=== PATIENT | male | born 1940 | race Caucasian/White ===

== ENCOUNTER 2025-05-30 16:32 | Observation (INO) ==
[2025-05-30] MEDS ORDERED: IOPAMIDOL 100 ML BOTTLE IV ONE (16:33)
[2025-05-30 17:11] LABS: Basophils # (Auto) 0.08 K/mcL (0.00-0.30); Basophils % (Auto) 0.7 % (0.0-2.0); Eosinophils # (Auto) 0.43 K/mcL (0.00-0.70); Eosinophils % (Auto) 3.7 % (0.0-7.0); Hematocrit 35.2 % (40.1-51.0); Hemoglobin 11.0 g/dL (13.7-17.5); Lymphocytes # (Auto) 1.13 K/mcL (1.50-4.80); Lymphocytes % (Auto) 9.7 % (15.5-49.0); Mean Corpuscular HGB Conc 31.3 g/dL (31.0-36.0); Monocytes # (Auto) 0.67 K/mcL (0.10-0.90); Monocytes % (Auto) 5.7 % (1.0-12.0); Neutrophils % (Auto) 79.9 % (38.0-78.0); Platelet Count 216 K/mcL (140-440); RBC 3.51 M/mcL (4.63-6.08); WBC 11.7 K/mcL (4.5-11.0)
[2025-05-30 17:29] LABS: INR 1.0 (0.9-1.1); Partial Thromboplastin Time 25.5 sec (20.0-37.0); Prothrombin Time 13.9 sec (11.9-14.5)
[2025-05-30] MEDS: ASPIRIN 81 MG TAB.CHEW CHEWED ONE ×2 (17:29→20:58)
[2025-05-30 17:37] LABS: ALT/SGPT 15 U/L (<40); AST/SGOT 12 U/L (<40); Albumin 3.3 gm/dL (3.2-5.2); Albumin/Globulin Ratio 1.3 (1.0-2.3); Alkaline Phosphatase 57 U/L (39-117); Anion Gap 11.0 (8.0-16.0); Bilirubin,Total < 0.2 mg/dL (0.1-1.0); Blood Urea Nitrogen 36 mg/dL (8-23); Calcium 8.8 mg/dL (8.6-10.4); Carbon Dioxide 25 mmol/L (22-30); Chloride 100 mmol/L (96-108); Globulin 2.5 gm/dL (2.2-3.7); Glucose 165 mg/dL (70-105); Potassium 4.6 mmol/L (3.3-5.1); Sodium 136 mmol/L (133-145)
[2025-05-30] MEDS: ATORVASTATIN 40 MG TABLET PO ONE (17:38)
[2025-05-30] MEDS: CLOPIDOGREL 300 MG TABLET PO ONE (20:59)
[2025-05-30] MEDS ORDERED: ONDANSETRON 4 MG/2 ML VIAL IV PRN (22:08)
[2025-05-30] MEDS ORDERED: ACETAMINOPHEN 325 MG TABLET PO PRN (22:08)
[2025-05-31] MEDS: 0.9 % SODIUM CHLORIDE 10 ML SYRINGE IV SCH (00:22)
[2025-05-31 06:12] LABS: Basophils # (Auto) 0.08 K/mcL (0.00-0.30); Basophils % (Auto) 0.6 % (0.0-2.0); Eosinophils # (Auto) 0.41 K/mcL (0.00-0.70); Eosinophils % (Auto) 3.2 % (0.0-7.0); Hematocrit 35.0 % (40.1-51.0); Hemoglobin 11.0 g/dL (13.7-17.5); Lymphocytes # (Auto) 0.79 K/mcL (1.50-4.80); Lymphocytes % (Auto) 6.2 % (15.5-49.0); Mean Corpuscular HGB Conc 31.4 g/dL (31.0-36.0); Monocytes # (Auto) 0.78 K/mcL (0.10-0.90); Monocytes % (Auto) 6.1 % (1.0-12.0); Neutrophils % (Auto) 83.6 % (38.0-78.0); Platelet Count 213 K/mcL (140-440); RBC 3.49 M/mcL (4.63-6.08); WBC 12.7 K/mcL (4.5-11.0)
[2025-05-31 06:31] LABS: ALT/SGPT 16 U/L (<40); AST/SGOT 13 U/L (<40); Albumin 3.7 gm/dL (3.2-5.2); Albumin/Globulin Ratio 1.3 (1.0-2.3); Alkaline Phosphatase 64 U/L (39-117); Anion Gap 13.0 (8.0-16.0); Bilirubin,Direct < 0.2 mg/dL (0-0.3); Bilirubin,Total 0.3 mg/dL (0.1-1.0); Blood Urea Nitrogen 32 mg/dL (8-23); Calcium 9.4 mg/dL (8.6-10.4); Carbon Dioxide 24 mmol/L (22-30); Chloride 103 mmol/L (96-108); Globulin 2.9 gm/dL (2.2-3.7); Glucose 142 mg/dL (70-105); Phosphorous 3.4 mg/dL (2.5-4.5); Potassium 4.2 mmol/L (3.3-5.1); Sodium 140 mmol/L (133-145); Uric Acid 5.5 mg/dL (2.5-8.0)
[2025-05-31 08:11] LABS: HDL Cholesterol 32 mg/dL (>40); LDL Cholesterol,Calculated 74 mg/dL (<100); Triglycerides 149 mg/dL (<150)
[2025-05-31 08:38] LABS: Estimated Average Glucose(eAG) 146 mg/dL; Hemoglobin A1C 6.7 % Hgb (4.0-6.0)
[2025-05-31] MEDS: ASPIRIN 81 MG TAB.CHEW CHEWED SCH (10:01)
[2025-05-31] MEDS: CLOPIDOGREL 75 MG TABLET PO SCH (10:02)
[2025-05-31] MEDS: SULFAMETHOXAZOLE/TRIMETHOPRIM 1 TABLET PO SCH (11:08)
[2025-05-31 11:57] VITALS: TEMP 97.6; O2SAT 97
[2025-05-31] MEDS ORDERED: ATORVASTATIN 40 MG TABLET PO SCH (21:00)
[2025-05-31] MEDS ORDERED: SENNOSIDES 1 TABLET PO SCH (21:00)
== END 2025-05-31 15:16 | disposition home or self-care (01) ==
LOC: ED 16:32 → MEDSUR 16:32
PROVIDERS: ADMIT Internal Medicine; ATTEND Internal Medicine